=== PATIENT | female | born 1960 | race African-American/Black ===

== ENCOUNTER → 2017-06-10 | Day surgery (SDC) | payer BC ==
[~2017-06-10] MED LIST: COZAAR100 MG PO; OMEPRAZOLE40 M1 PO; VITAMIN D350000 UNIT PO
--- NOTE | ~2017-06-10 | OR ---
Unit #: [id number] #: [id number] Patient: NICK LIPSCOMB [id number] [address] [address] [id number] MR#: [id number] NAME: NICK LIPSCOMB ROOM: Date of Procedure: 06/10/2017 Admission Date: 06/10/2017 Surgeon: Nixon Dooley M.D. : 1960 Attending Physician: Nixon Dooley M.D. Referring Physician: Nixon Dooley M.D. Primary Care Physician: Sierra Lundy A.P.R.N. PROCEDURE OPERATIVE NOTE PROCEDURE Colonoscopy to cecum with snare polypectomy. INDICATION Average risk for colorectal cancer. MEDICATIONS Monitored anesthesia. POSTOP FINDINGS 1. Five mm rectal polyp snared and sent for cytology. 2. Rest of the colon exam to cecum was normal. 3. Prep was good. PLAN Follow up the cytology report. If adenomatous, repeat colonoscopy in 5 years. DESCRIPTION OF PROCEDURE The patient was explained the procedure risks and benefits, along with the risk and benefits of anesthesia. She was brought to the endoscopy room. Propofol anesthesia was given. Rectal exam was done, which was normal. Colonoscope was lubricated and passed up the rectum, advanced under direction vision all the way to cecum. Cecum was identified by the ileocecal valve and appendiceal orifice. I then started to pull the scope out, carefully looking. Small polyp, as described above. I retroflexed in the rectum. Internal hemorrhoids noted. Gently the scope was pulled out. She tolerated it well. Dictated by... Tonio Flores/jacinto TD: 06/27/2017 09:42 JOB #: [id number] Unit #: [id number] #: [id number] Patient: NICK LIPSCOMB PROCEDURE OPERATIVE NOTE Page 1 of 1 X Nixon Dooley MD PROCEDURE OPERATIVE NOTE
== END | disposition home or self-care (01) ==
LOC: COPS 08:10
DX: Z12.11 Encounter for screening for malignant neoplasm of colon (principal); K62.1 Rectal polyp; K64.8 Other hemorrhoids; K21.9 Gastro-esophageal reflux disease without esophagitis; I10 Essential (primary) hypertension; F17.210 Nicotine dependence, cigarettes, uncomplicated; Z79.899 Other long term (current) drug therapy; Z90.711 Acquired absence of uterus with remaining cervical stump
CPT/HCPCS: 88305; J2250